=== PATIENT | male | born 1960 | race Caucasian/White ===

== ENCOUNTER 2017-08-02 19:18 | Emergency (ER) | payer OTHER ==
--- NOTE | 2017-08-02 19:24 | EDPHY ---
H & P Time Seen by Provider: 08/02/17 19:24 HPI/ROS: HPI CHIEF COMPLAINT: Bilateral Leg Pain HISTORY OF PRESENT ILLNESS: Very pleasant 56-year-old male, presents to the emergency room bilateral leg pain. Patient states for the past week he has had ongoing diffuse leg pain. Describes it as somebody stabbing him in both of his legs from the inside out. He denies any radiation of pain specifically denies pain going down his legs from his back however he states that he gets worse when he is sitting for prolonged periods of time. He denies any pain when he goes to ambulate or exertional pain. Denies any abdominal pain chest pain or back pain. Denies any trauma to his legs. Patient states he thought that he may be dehydrated has electrolyte disturbance. Additionally states 1 week ago he got new shoe inserts. And since then has had leg discomfort. He has never had this before. He denies any discoloration of his legs or worsening pain when he goes to exert himself or ambulate. No trauma. No fever. Past Medical History: Hypertension, hyperlipidemia, obesity Past Surgical History: Hernia repair Social History: Denies daily use of drugs alcohol tobacco. Family History: Noncontributory ROS REVIEW OF SYSTEMS: A comprehensive 10 point review of systems is otherwise negative aside from elements mentioned in the history of present illness. Exam Constitutional appears well nontoxic no acute distress, triage nursing summary reviewed, vital signs reviewed, awake/alert. Eyes normal conjunctivae and sclera, EOMI, PERRLA. HENT normal inspection, atraumatic, moist mucus membranes, no epistaxis, neck supple/ no meningismus, no raccoon eyes. Respiratory clear to auscultation bilaterally, normal breath sounds, no respiratory distress, no wheezing. Cardiovascular rate normal, regular rhythm, no murmur, no edema, distal pulses normal. Gastrointestinal soft, non-tender, no rebound, no guarding, normal bowel sounds, no distension, no pulsatile mass. Genitourinary no CVA tenderness. Musculoskeletal bilateral lower extremity: Good distal pulses, good cap refill , warm extremities, no abnormal swelling, no rash, no significant edema there is trace edema around his ankles, no petechia, good cap refill, warm extremities bilaterally. no midline vertebral tenderness, full range of motion, no calf swelling, no tenderness of extremities, no meningismus, good pulses, neurovascularly intact. Skin pink, warm, & dry, no rash, skin atraumatic. Neurologic awake, alert and oriented x 3, AAOx3, moves all 4 extremities equally, motor intact, sensory intact, CN II-XII intact, normal cerebellar, normal vision, normal speech. Psychiatric normal mood/affect. Heme/Lymph/Immune no lymphadenopathy. Differential Diagnosis: Includes but is not limited to in a particular order neuropathy, meralgia paraesthetica, DVT electrolyte disturbance, vascular phenomena Medical Decision Making: Plan for this patient will perform ultrasound to rule out DVT of bilateral lower extremities, will check basic electrolytes, gentle IV hydration, IV Dilaudid for pain control, check CK, check lactic acid Re-evaluation: Ultrasound Doppler lower extremities of the venous system show no evidence of DVTs. Additionally there were good arterial wave forms. Please see radiology' s full dictation report. Called to me by Dr. Marquis Prather. 2108: Blood work has been reviewed. Normal CK. Lactic acid less than 2. Electrolytes are appropriate. Kidney function appropriate. 2108: I did go re-evaluate the patient this time he continues to complain of bilateral upper leg pain. Neurovascularly on exam is good distal pulses and good cap refill both legs are warm. His ultrasound blood work been reviewed. Pain may be due to neuropathy. Will recommend he follows up with his primary care doctor closely. Additionally return emergency room if worsening symptoms questions or concerns. 2133: Patient re-evaluated after 15 mg IV Toradol and is feeling much better. I discussed at length his results and ultrasound with him. Clinically the patient most likely has neuropathy possibly meralgia parasthetica , as he often sits in a hyper 90 degree angle with a rather large pannus, may be compressing his from a cutaneous nerves. I recommend he tries walking every 15 min and refrain from sitting for prolonged periods time additionally refrain from sitting in a 90 degree angle. He is agree with this. He will additionally follow up with his primary care doctor as well as neurologist. Recommend return emergency room if has worsening pain questions or concerns. Prescription for ibuprofen and [place] for pain control. Limited supply of [place]. Source: Patient - Medical/Surgical History Other PMH: PCP Willy. HTN , GERD. Rayna[facility]. Surg: hernia ,. Tetanus utd - Social History Smoking Status: Never smoked Constitutional: Initial Vital Signs Temperature (C) 36.4 C 08/02/17 19:25 Heart Rate 94 08/02/17 19:25 Respiratory Rate 18 08/02/17 19:25 Blood Pressure 161/100 H 08/02/17 19:25 O2 Sat (%) 94 08/02/17 19:25 O2 Delivery Mode Room Air Allergies/Adverse Reactions: No Known Allergies Allergy (Verified 08/02/17 19:28) Home Medications: Medication Instructions Recorded Adderall 10 MG (*) 08/02/17 Amlodipine Besylate 08/02/17 Aspirin 08/02/17 Atorvastatin Calcium 08/02/17 Bystolic 08/02/17 Cialis 08/02/17 Hydrochlorothiazide 08/02/17 Hydrocodone/APAP 5/325 [[place] 1 - 2 tab PO Q4H PRN #10 tab 08/02/17 5/325] Ibuprofen [Motrin (*)] 800 mg PO Q6-8PRN #10 tab 08/02/17 Lisinopril 08/02/17 [place]-3 08/02/17 Pantoprazole Sodium 08/02/17 Vitamin D3 08/02/17 Medical Decision Making - Diagnostics Imaging Results: Imaging Impressions Extremity Venous Study 08/02/17 19:40 Impression: 1. No evidence of deep vein thrombosis in the lower extremities. 2. Limited visualization of the left peroneal artery, which appears patent, otherwise grossly unremarkable lower extremity arterial ultrasound. Findings discussed with Isak Renteria M.D., on August 02, 2017 at 2100. - Data Points Laboratory Results: Laboratory Results 08/02/17 19:45 08/02/17 08/02/17 08/02/17 20:02 19:56 19:45 WBC RBC Hgb Hct MCV MCH MCHC RDW Plt Count MPV Neut % (Auto) Lymph % (Auto) [place] % (Auto) Eos % (Auto) Baso % (Auto) Nucleat RBC Rel Count Absolute Neuts (auto) Absolute Lymphs (auto) Absolute Monos (auto) Absolute Eos (auto) Absolute Basos (auto) Absolute Nucleated RBC Immature Gran % Immature Gran # POC Blood Source VENOUS Patient Temperature 37.0 DEGREES DEGREES POC VBG pH 7.49 H (7.31-7.42) POC VBG pCO2 31 mmHg L mmHg (40-44) POC VBG pO2 52 mmHg H mmHg (35-40) POC VBG HCO3 23 mEq/L mEq/L (22-26) POC VBG Total CO2 24 mEq/L mEq/L (21-27) POC VBG Base Excess 0.0 mEq/L mEq/L (-2.5-2.5) POC Mix VBG O2 Sat 89 % H % (65-75) POC Sodium 139 mEq/L mEq/L (135-145) POC Potassium 3.4 mEq/L mEq/L (3.3-5.0) POC Chloride 104.0 mEq/L mEq/L (97-110) POC Total CO2 24 mEq/L mEq/L (22-31) POC BUN 11 mg/dL mg/dL (7-23) POC Creatinine 1.0 mg/dL mg/dL (0.7-1.3) POC Glucose 119 mg/dL H mg/dL (70-100) POC Lactic Acid [place] 1.6 mmol/L mmol/L (0.7-2.1) POC Calcium 9.4 mg/dL mg/dL (8.5-10.4) POC Total Bilirubin 0.7 mg/dL mg/dL (0.1-1.4) POC AST 35 IU/L IU/L (17-59) POC ALT 57 IU/L IU/L (21-72) POC Alk Phosphatase 63 IU/L IU/L (38-126) Creatine Kinase 78 IU/L IU/L (0-224) POC Total Protein 7.2 g/dL g/dL (6.3-8.2) POC Albumin 3.7 g/dL g/dL (3.5-5.0) 08/02/17 19:45 WBC 6.24 10^3/uL 10^3/uL (3.80-9.50) RBC 5.35 10^6/uL 10^6/uL (4.40-6.38) Hgb 16.8 g/dL g/dL (13.7-17.5) Hct 48.5 % % (40.0-51.0) MCV 90.7 fL fL (81.5-99.8) MCH 31.4 pg pg (27.9-34.1) MCHC 34.6 g/dL g/dL (32.4-36.7) RDW 13.2 % % (11.5-15.2) Plt Count 324 10^3/uL 10^3/uL (150-400) MPV 10.2 fL fL (8.7-11.7) Neut % (Auto) 53.0 % % (39.3-74.2) Lymph % (Auto) 32.4 % % (15.0-45.0) [place] % (Auto) 12.0 % % (4.5-13.0) Eos % (Auto) 2.1 % % (0.6-7.6) Baso % (Auto) 0.3 % % (0.3-1.7) Nucleat RBC Rel Count 0.0 % % (0.0-0.2) Absolute Neuts (auto) 3.31 10^3/uL 10^3/uL (1.70-6.50) Absolute Lymphs (auto) 2.02 10^3/uL 10^3/uL (1.00-3.00) Absolute Monos (auto) 0.75 10^3/uL 10^3/uL (0.30-0.80) Absolute Eos (auto) 0.13 10^3/uL 10^3/uL (0.03-0.40) Absolute Basos (auto) 0.02 10^3/uL 10^3/uL (0.02-0.10) Absolute Nucleated RBC 0.00 10^3/uL 10^3/uL (0-0.01) Immature Gran % 0.2 % % (0.0-1.1) Immature Gran # 0.01 10^3/uL 10^3/uL (0.00-0.10) POC Blood Source Patient Temperature POC VBG pH POC VBG pCO2 POC VBG pO2 POC VBG HCO3 POC VBG Total CO2 POC VBG Base Excess POC Mix VBG O2 Sat POC Sodium POC Potassium POC Chloride POC Total CO2 POC BUN POC Creatinine POC Glucose POC Lactic Acid [place] POC Calcium POC Total Bilirubin POC AST POC ALT POC Alk Phosphatase Creatine Kinase POC Total Protein POC Albumin Medications Given: Discontinued Medications Hydromorphone HCl (Dilaudid) 1 mg IVP EDNOW ONE Stop: 08/02/17 19:40 Last Admin: 08/02/17 19:51 Dose: 1 mg Sodium Chloride (Ns) 1,000 mls @ 0 mls/hr IV ONCE ONE PRN Reason: Wide Open Stop: 08/02/17 19:40 Last Admin: 08/02/17 19:51 Dose: 1,000 mls Ketorolac Tromethamine (Toradol) 15 mg IVP EDNOW ONE Stop: 08/02/17 21:09 Last Admin: 08/02/17 21:13 Dose: 15 mg Point of Care Test Results: Chemistry 08/02/17 20:02 POC Sodium 139 mEq/L mEq/L (135-145) POC Potassium 3.4 mEq/L mEq/L (3.3-5.0) POC Chloride 104.0 mEq/L mEq/L (97-110) POC Total CO2 24 mEq/L mEq/L (22-31) POC BUN 11 mg/dL mg/dL (7-23) POC Creatinine 1.0 mg/dL mg/dL (0.7-1.3) POC Glucose 119 mg/dL H mg/dL (70-100) POC Calcium 9.4 mg/dL mg/dL (8.5-10.4) POC Total Bilirubin 0.7 mg/dL mg/dL (0.1-1.4) POC AST 35 IU/L IU/L (17-59) POC ALT 57 IU/L IU/L (21-72) POC Alk Phosphatase 63 IU/L IU/L (38-126) POC Total Protein 7.2 g/dL g/dL (6.3-8.2) POC Albumin 3.7 g/dL g/dL (3.5-5.0) Blood Gas/Lactic Acid-Arterial 08/02/17 19:56 POC Blood Source VENOUS Blood Gas/Lactic Acid-Venous 08/02/17 19:56 POC VBG pH 7.49 H (7.31-7.42) POC VBG pCO2 31 mmHg L mmHg (40-44) POC VBG pO2 52 mmHg H mmHg (35-40) POC VBG HCO3 23 mEq/L mEq/L (22-26) POC VBG Total CO2 24 mEq/L mEq/L (21-27) POC VBG Base Excess 0.0 mEq/L mEq/L (-2.5-2.5) POC Mix VBG O2 Sat 89 % H % (65-75) POC Lactic Acid [place] 1.6 mmol/L mmol/L (0.7-2.1) Departure - Departure Disposition: Home, Routine, Self-Care Clinical Impression: Neuropathy Leg pain Qualifiers: Laterality: bilateral Qualified Code(s): M79.604 - Pain in right leg; M79.605 - Pain in left leg; M79.605 - Pain in left leg Condition: Good Instructions: Leg Pain (ED) Additional Instructions: 1. Return to the emergency room if you have worsening pain questions or concerns 2. I would recommend he follow up with your primary care doctor as well. Referrals: STEVO MARCOS [Primary Care Provider] - As per Instructions Papo Morales DO [Medical Doctor] - As per Instructions Prescriptions: Hydrocodone/APAP 5/325 [[place] 5/325] 1 - 2 tab PO Q4H PRN #10 tab PRN Reason: Pain, Moderate Ibuprofen [Motrin (*)] 800 mg PO Q6-8PRN #10 tab
[2017-08-02] MEDS ORDERED: HYDROmorphONE/DILAUDID 2 MG/ML INJ IVP ONE (19:39)
[2017-08-02] MEDS ORDERED: NS 1,000 ML IV ONE (19:39)
[2017-08-02 20:37] LABS: CREATINE KINASE 78 IU/L (0-224)
[2017-08-02 20:52] LABS: PLATELET COUNT 324 10^3/uL (150-400)
[2017-08-02] MEDS ORDERED: KETOROLAC 15 MG/1 ML SDV IVP ONE (21:08)
[2017-08-02] MEDS ORDERED: HYDROCOD/APAP 5/325 PREPACK#6 BTL TAKEHOME ONE (21:35)
[2017-08-02 21:53] VITALS: BP 121/67
== END 2017-08-02 21:52 | disposition home or self-care (01) ==
LOC: CED 19:18
DX: M79.604 Pain in right leg (principal); M79.605 Pain in left leg; G62.9 Polyneuropathy, unspecified; I10 Essential (primary) hypertension; Z79.82 Long term (current) use of aspirin
CPT/HCPCS: 80053-PO; 83605-PO; 93970-PO; 96374; J1170; J1885